=== PATIENT | female | born 1985 | race Caucasian/White ===

== ENCOUNTER 2016-11-09 07:17 | Emergency (ER) | payer MEDICAID ==
[~2016-11-09] VITALS: Ht 162.6 cm; Wt 61.9 kg
[2016-11-09 08:35] VITALS: BP 113/63
== END 2016-11-09 08:35 | disposition home or self-care (01) ==
LOC: ED 07:17
DX: L50.9 Urticaria, unspecified (principal)
CPT/HCPCS: J7512

== ENCOUNTER 2017-10-05 21:55 | Emergency (ER) | payer MEDICAID ==
[~2017-10-05] VITALS: Ht 162.6 cm; Wt 65.0 kg
[2017-10-05 22:03] VITALS: Ht 162.6 cm; Wt 65.0 kg
[2017-10-06 02:18] LABS: microscopic required? NO
[2017-10-06 02:19] VITALS: BP 116/73
[2017-10-06 03:00] LABS: urine erythrocyte NEGATIVE (NEGATIVE)
== END 2017-10-06 05:34 | disposition home or self-care (01) ==
LOC: ED 21:55
PROVIDERS: Emergency Medicine
DX: N76.0 Acute vaginitis (principal)
CPT/HCPCS: 87491; 87591; J0696

== ENCOUNTER 2017-10-22 04:16 | Emergency (ER) | payer MEDICAID ==
[~2017-10-22] VITALS: Ht 160 cm; Wt 64.5 kg
[2017-10-22 04:23] VITALS: Ht 160 cm; Wt 64.5 kg
[2017-10-22 06:36] VITALS: BP 147/85
== END 2017-10-22 06:36 | disposition home or self-care (01) ==
LOC: ED 04:16
DX: T78.2XXA Anaphylactic shock, unspecified, initial encounter (principal); Y92.89 Other specified places as the place of occurrence of the external cause
CPT/HCPCS: J0171; J1200; J2930; J3490; J7030

== ENCOUNTER 2017-11-25 16:16 | Emergency (ER) | payer MEDICAID ==
[~2017-11-25] VITALS: Ht 162.6 cm; Wt 62.8 kg
[2017-11-25 16:36] VITALS: Ht 162.6 cm; Wt 62.8 kg
[2017-11-25 17:39] LABS: microscopic required? NO
[2017-11-25 17:45] VITALS: BP 125/74
[2017-11-25 18:04] LABS: urine erythrocyte NEGATIVE (NEGATIVE)
== END 2017-11-25 17:45 | disposition home or self-care (01) ==
LOC: ED 16:16
PROVIDERS: Emergency Medicine
DX: R10.2 Pelvic and perineal pain (principal); R30.0 Dysuria; R35.0 Frequency of micturition
CPT/HCPCS: 87491; 87591

== ENCOUNTER 2018-06-01 16:42 | Emergency (ER) | payer MEDICAID ==
[~2018-06-01] VITALS: Ht 165.1 cm; Wt 62.6 kg
[2018-06-01 17:15] VITALS: Ht 165.1 cm; Wt 62.6 kg
[2018-06-01 17:56] LABS: PLATELET COUNT 280 x10^3mcL (130-400)
[2018-06-01 17:57] LABS: RED CELL DISTRIBUTION WIDTH 16.3 % (11.5-14.5)
[2018-06-01 18:15] LABS: CALCIUM 8.7 mg/dL (8.5-10.1); CARBON DIOXIDE 28.2 mmol/L (21-32); CHLORIDE SERUM 104 mmol/L (98-107); CREATININE SERUM 0.7 mg/dL (0.6-1.0); GFR1 > 60 mL/min; GLUCOSE SERUM 100 mg/dL (74-106); POTASSIUM SERUM 4.5 mmol/L (3.5-5.1); SODIUM SERUM 141 mmol/L (136-145)
[2018-06-01 18:19] LABS: ALBUMIN 3.6 g/dL (3.4-5.0); ALKALINE PHOSPHATASE 51 U/L (46-116); ALT/SGPT 16 U/L (14-59); AST/SGOT 20 U/L (15-37); BILIRUBIN TOTAL 0.24 mg/dL (0.20-1.00); LIPASE 247 IU/L (73-393)
[2018-06-01 19:31] VITALS: BP 115/57
== END 2018-06-01 19:31 | disposition home or self-care (01) ==
LOC: ED 16:42
PROVIDERS: Emergency Medicine
DX: G44.209 Tension-type headache, unspecified, not intractable (principal); R53.1 Weakness; F41.9 Anxiety disorder, unspecified; G43.909 Migraine, unspecified, not intractable, without status migrainosus; F32.9 Major depressive disorder, single episode, unspecified
CPT/HCPCS: J1885; J2405

== ENCOUNTER 2018-09-04 19:27 | Emergency (ER) | payer MEDICAID ==
[~2018-09-04] VITALS: Ht 162.6 cm; Wt 61.2 kg
[2018-09-04 19:34] VITALS: Ht 162.6 cm; Wt 61.2 kg
[2018-09-04 20:17] LABS: BASOPHIL % 0.9 % (0-2); PLATELET COUNT 244 x10^3mcL (130-400); RED CELL DISTRIBUTION WIDTH 13.6 % (11.5-14.5)
[2018-09-04 20:29] LABS: CALCIUM 9.9 mg/dL (8.5-10.1); CARBON DIOXIDE 25.2 mmol/L (21-32); CHLORIDE SERUM 105 mmol/L (98-107); CREATININE SERUM 0.7 mg/dL (0.6-1.0); GFR1 > 60 mL/min; GLUCOSE SERUM 101 mg/dL (74-106); POTASSIUM SERUM 3.8 mmol/L (3.5-5.1); SODIUM SERUM 140 mmol/L (136-145)
[2018-09-04 20:47] LABS: ALBUMIN 4.2 g/dL (3.4-5.0); ALKALINE PHOSPHATASE 55 U/L (46-116); ALT/SGPT 20 U/L (14-59); AST/SGOT 12 U/L (15-37); BILIRUBIN TOTAL 0.22 mg/dL (0.20-1.00); LIPASE 285 IU/L (73-393); TOTAL PROTEIN, SERUM 7.9 g/dL (6.4-8.2)
[2018-09-04 21:51] VITALS: BP 122/66
== END 2018-09-04 21:52 | disposition home or self-care (01) ==
LOC: ED 19:27
DX: R10.33 Periumbilical pain (principal); G43.909 Migraine, unspecified, not intractable, without status migrainosus; F32.9 Major depressive disorder, single episode, unspecified; Z86.19 Personal history of other infectious and parasitic diseases; Z88.8 Allergy status to other drugs, medicaments and biological substances
CPT/HCPCS: 36415; J1885